=== PATIENT | male | born 1990 | race African-American/Black ===

== ENCOUNTER 2017-06-03 12:22 | Emergency (ER) | payer OTHER ==
[~2017-06-03] VITALS: Ht 182.9 cm; Wt 93.0 kg
[~2017-06-03 12:22] MED LIST: ATIVAN1 MG PO; BENZTROPINE ME0.5 MG PO; CARBAMAZEPINE200 M2 PO; DEPAKOTE ER500 MG PO; FANAPT4 MG PO; FLEXERIL PO; GABAPENTIN100 MG PO; HALDOL 0.5 MG0.5 MG PO; LITHIUM CARBON300 M3 PO; LOXAPINE10 MG PO; NAPROSYN500 MG PO; RISPERDAL0.5 MG PO
[2017-06-03] MEDS ORDERED: NORFLEX100 MG PO (14:14)
[2017-06-03 14:23] VITALS: BP 148/84
== END 2017-06-03 14:24 | disposition home or self-care (01) ==
LOC: ER 12:22
DX: S16.1XXA Strain of muscle, fascia and tendon at neck level, initial encounter (principal); S09.90XA Unspecified injury of head, initial encounter; Z88.8 Allergy status to other drugs, medicaments and biological substances; Z87.891 Personal history of nicotine dependence; V49.40XA Driver injured in collision with unspecified motor vehicles in traffic accident, initial encounter; Y93.89 Activity, other specified; Y92.89 Other specified places as the place of occurrence of the external cause; Y99.8 Other external cause status

== ENCOUNTER → 2017-06-12 | Outpatient (CLI) | payer OTHER ==
[~2017-06-12] MED LIST changes: +NORFLEX100 MG PO
== END ==
LOC: ULTRA 12:00 → RAD 12:00
DX: J18.9 Pneumonia, unspecified organism (principal); R10.11 Right upper quadrant pain

== ENCOUNTER 2017-06-16 10:48 | Emergency (ER) | payer OTHER ==
[~2017-06-16] VITALS: Ht 182.9 cm; Wt 88.5 kg
[2017-06-16] MEDS ORDERED: ATIVAN1 MG PO (11:59)
== END 2017-06-16 12:09 | disposition home or self-care (01) ==
LOC: ER 10:48
DX: F41.9 Anxiety disorder, unspecified (principal); Z76.0 Encounter for issue of repeat prescription; Z91.14 Patient's other noncompliance with medication regimen; Z87.891 Personal history of nicotine dependence; Z88.8 Allergy status to other drugs, medicaments and biological substances

== ENCOUNTER 2017-11-15 20:20 | Emergency (ER) | payer OTHER ==
[~2017-11-15] VITALS: Ht 185.4 cm; Wt 81.7 kg
[2017-11-15 20:25] VITALS: BP 118/69
== END 2017-11-15 21:26 | disposition home or self-care (01) ==
LOC: ER 20:20
DX: S61.412A Laceration without foreign body of left hand, initial encounter (principal); W25.XXXA Contact with sharp glass, initial encounter; Y93.89 Activity, other specified; Y92.89 Other specified places as the place of occurrence of the external cause; Y99.8 Other external cause status; F41.9 Anxiety disorder, unspecified; Z87.891 Personal history of nicotine dependence; Z88.8 Allergy status to other drugs, medicaments and biological substances

== ENCOUNTER 2021-06-15 17:45 | Emergency (ER) | payer OTHER ==
[2021-06-15 18:12] VITALS: BP 130/81
[2021-06-15 22:37] LABS: ABSOLUTE NEUTROPHILS 3.2 thou/uL (1.4-8.2); BASOPHILS 0.5 % (0.0-2.0); HEMATOCRIT 47.5 % (42.0-52.0); HEMOGLOBIN 16.3 gm/dL (14.0-18.0); LYMPHOCYTES 39.4 % (24.0-44.0); MCH 32.1 pg (26.0-34.0); MCHC 34.3 g/dL (28.0-37.0); MCV 93.8 fL (80.0-100.0); MONOCYTES 8.9 % (1.0-8.0); PLATELET COUNT 205 thou/uL (150-400); POLYS 48.2 % (36.0-66.0); RBC 5.06 mil/uL (4.50-6.00); WBC 6.6 thou/uL (4.0-11.0)
[2021-06-15 22:47] LABS: CALCIUM 9.2 mg/dL (8.5-10.1); POTASSIUM 3.9 mmol/L (3.5-5.1)
[2021-06-15 22:51] LABS: ALBUMIN 4.6 g/dL (3.4-5.0); TOTAL BILIRUBIN 0.5 mg/dL (0.2-1.0); TOTAL PROTEIN 7.9 g/dL (6.4-8.2)
== END 2021-06-16 01:21 | disposition left against medical advice (07) ==
LOC: ER 17:45
PROVIDERS: Emergency Medicine
DX: R10.11 Right upper quadrant pain (principal); G62.9 Polyneuropathy, unspecified; F41.9 Anxiety disorder, unspecified; F31.9 Bipolar disorder, unspecified; Z79.899 Other long term (current) drug therapy; Z88.6 Allergy status to analgesic agent; Z88.8 Allergy status to other drugs, medicaments and biological substances; Z87.891 Personal history of nicotine dependence